=== PATIENT | female | born 1970 | race Caucasian/White ===

== ENCOUNTER 2018-11-27 09:39 | Emergency (ER) | payer BC ==
[2018-11-27 10:18] VITALS: BP 143/76
--- NOTE | 2018-11-27 10:43 | UC ---
Throat Pain/Nasal Ashish HPI - HPI Summary HPI Summary: sore throat x 3 days + dry cough , pnd , nasal congestion no fever , + body aches, chills - History of Current Complaint Chief Complaint: UCGeneralIllness Stated Complaint: SORE THROAT SINUS COUGH Time Seen by Provider: 11/27/18 10:29 Hx Obtained From: Patient Hx Last Menstrual Period: November 03 ?: No Onset/Duration: Gradual Onset, Lasting Days - 3, Still Present Severity: Moderate Pain Intensity: 4 Cough: Nonproductive Associated Signs & Symptoms: Positive: Sinus Discomfort, Nasal Discharge. Negative: Dysphagia, FB Sensation, Drooling, Wheezing, Hoarseness, Fever, Vomiting, Rash - Allergies/Home Medications Allergies/Adverse Reactions: Allergies Allergy/AdvReac Type Severity Reaction Status Date / Time erythromycin base AdvReac Vomiting Verified 11/27/18 10:18 PMH/Surg Hx/FS Hx/Imm Hx Psychological History: Anxiety, Depression - Surgical History Surgical History: Yes Surgery Procedure, Year, and Place: Varicous vein surgery B/L legs. TONSILECTOMY. fx ankle with surgical repair- 2016 - Family History Known Family History: Negative: Diabetes - Social History Alcohol Use: Weekly Substance Use Type: None Smoking Status (MU): Never Smoked Tobacco Review of Systems All Other Systems Reviewed And Are Negative: Yes Constitutional: Positive: Chills Skin: Positive: Negative Eyes: Positive: Negative ENT: Positive: Sore Throat, Nasal Discharge, Sinus Congestion, Sinus Pain/ Tenderness Respiratory: Positive: Cough Cardiovascular: Positive: Negative Is Patient Immunocompromised?: No Physical Exam Triage Information Reviewed: Yes Appearance: Well-Appearing, No Pain Distress, Well-Nourished Vital Signs: Initial Vital Signs Temp 98.5 F 11/27/18 10:12 Pulse 89 11/27/18 10:12 Resp 18 11/27/18 10:12 BP 143/76 11/27/18 10:12 Pulse Ox 98 11/27/18 10:12 Vital Signs Reviewed: Yes Eye Exam: Normal Eyes: Positive: Conjunctiva Clear ENT: Positive: Normal ENT inspection, Hearing grossly normal, Pharynx normal, Nasal congestion, Nasal drainage, TMs normal. Negative: Pharyngeal erythema, TM bulging, TM dull, TM red, Tonsillar swelling, Tonsillar exudate Neck: Positive: Supple, Nontender, No Lymphadenopathy Respiratory: Positive: Chest non-tender, Lungs clear, Normal breath sounds Cardiovascular: Positive: RRR, No Murmur, Pulses Normal Skin Exam: Normal Throat Pain/Nasal Course/Dx - Differential Dx/Diagnosis Provider Diagnosis: Pharyngitis Discharge - Sign-Out/Discharge Documenting (check all that apply): Patient Departure All imaging exams completed and their final reports reviewed: No Studies - Discharge Plan Condition: Stable Disposition: HOME Prescriptions: Codeine Phosphate/Guaifenesin [Cheratussin AC] 10 ml PO Q8H #120 ml MDD 30 ml Patient Education Materials: Pharyngitis (ED) Referrals: No Primary Care Phys,NOPCP [Primary Care Provider] - If Needed - Billing Disposition and Condition Condition: STABLE Disposition: Home
== END 2018-11-27 10:41 | disposition home or self-care (01) ==
LOC: UCCORT 09:39
DX: J02.9 Acute pharyngitis, unspecified (principal); F41.9 Anxiety disorder, unspecified; F32.9 Major depressive disorder, single episode, unspecified; Z88.1 Allergy status to other antibiotic agents
CPT/HCPCS: 99202; G0463